=== PATIENT | female | born 1970 | race Caucasian/White ===

== ENCOUNTER 2018-08-30 16:11 | Emergency (ER) | payer MEDICAID | END 2018-08-30 17:04 | disposition home or self-care (01) | LOC: FTE 16:11 | DX: J20.9 Acute bronchitis, unspecified (principal); F17.210 Nicotine dependence, cigarettes, uncomplicated | CPT/HCPCS: 99283; Z7502 ==

== ENCOUNTER 2018-11-10 11:09 | Emergency (ER) | payer SELFPAY, MEDICAID ==
[2018-11-10] MEDS: IBUPROFEN 200 MG TAB PO (12:42)
[2018-11-10] MEDS: ACETAMINOPHEN 325 MG TAB PO (12:42)
== END 2018-11-10 14:35 | disposition home or self-care (01) ==
LOC: FTE 11:09
DX: S20.211A Contusion of right front wall of thorax, initial encounter (principal); F17.210 Nicotine dependence, cigarettes, uncomplicated; W18.39XA Other fall on same level, initial encounter; Y92.9 Unspecified place or not applicable
CPT/HCPCS: 71100; 99283-25